=== PATIENT | male | born 1945 | race Caucasian/White ===

== ENCOUNTER 2018-04-27 17:27 | Inpatient (IN) | payer OTHER, MEDICAID ==
[~2018-04-27] VITALS: Ht 185.4 cm; Wt 96.2 kg
[2018-04-27 17:43] VITALS: Ht 185.4 cm; Wt 96.2 kg
[2018-04-28 00:58] VITALS: BP 162/85
[2018-04-28 05:36] VITALS: BP 158/72
[2018-04-28 07:04] LABS: BASOPHIL % 0.6 % (0-2)
[2018-04-28 07:21] LABS: CALCIUM 8.8 mg/dL (8.5-10.1); CHLORIDE SERUM 108 mmol/L (98-107); CREATININE SERUM 1.3 mg/dL (0.7-1.3); GLUCOSE SERUM 109 mg/dL (74-106); POTASSIUM SERUM 3.3 mmol/L (3.5-5.1); SODIUM SERUM 143 mmol/L (136-145)
[2018-04-28 07:46] LABS: PLATELET COUNT 118 x10^3mcL (130-400); RED CELL DISTRIBUTION WIDTH 15.1 % (11.5-14.5)
[2018-04-28 08:45] VITALS: BP 148/76
[2018-04-28 12:30] VITALS: BP 139/75
[2018-04-28 16:38] VITALS: BP 139/75
[2018-04-28 16:45] VITALS: BP 131/65
== END 2018-04-28 18:21 | disposition home or self-care (01) | DRG 301 ==
LOC: ED 17:27 → DU 20:44
PROVIDERS: Internal Medicine
DX: I82.4Z2 Acute embolism and thrombosis of unspecified deep veins of left distal lower extremity (principal); I10 Essential (primary) hypertension; E87.6 Hypokalemia; I73.9 Peripheral vascular disease, unspecified; I25.10 Atherosclerotic heart disease of native coronary artery without angina pectoris; M19.072 Primary osteoarthritis, left ankle and foot; I25.2 Old myocardial infarction; Z68.29 Body mass index [BMI] 29.0-29.9, adult; Z87.891 Personal history of nicotine dependence
CPT/HCPCS: J1644; Q0092

== ENCOUNTER 2018-06-18 13:57 | Emergency (ER) | payer OTHER, MEDICAID ==
[~2018-06-18] VITALS: Ht 185.4 cm; Wt 102.1 kg
[2018-06-18 16:58] VITALS: BP 180/94
== END 2018-06-18 16:50 | disposition home or self-care (01) ==
LOC: ED 13:57
DX: I80.02 Phlebitis and thrombophlebitis of superficial vessels of left lower extremity (principal); Z86.73 Personal history of transient ischemic attack (TIA), and cerebral infarction without residual deficits; Z98.890 Other specified postprocedural states
CPT/HCPCS: Q0092